=== PATIENT | male | born 1970 | race Caucasian/White ===

== ENCOUNTER 2018-01-14 06:00 | Day surgery (SDC) | payer OTHER ==
[~2018-01-14 06:00] MED LIST: CLONAZEPAM2 M1 PO; CYTOMEL25 MCG PO; DEPAKOTE ER500 MG PO; HUMULIN 70100 UNIT/2 SUBCUTANEO; INVOKAMET 50-51 EACH PO; INVOKANA300 MG PO; LIPITOR20 MG PO; RESTORIL30 M1 PO; SYNTHROID150 MCG PO; TRULICITY0.75 MG/0.
== END 2018-01-15 13:00 | disposition home or self-care (01) ==
LOC: CIR.AMB 06:00 → O/R 19:10 → CIR.AMB 19:10 → SURH 19:10 → O/R 19:11 → CIR.AMB 01-15 13:00 → SURH 01-15 18:26
DX: S52.392A Other fracture of shaft of radius, left arm, initial encounter for closed fracture (principal); S63.015A Dislocation of distal radioulnar joint of left wrist, initial encounter; M13.832 Other specified arthritis, left wrist
CPT/HCPCS: 25400; 25446; C1776

== ENCOUNTER 2018-11-18 07:00 | Day surgery (SDC) | payer OTHER ==
[~2018-11-18] VITALS: Ht 177.8 cm; Wt 122.5 kg
[~2018-11-18 07:00] MED LIST changes: +BYDUREON P2 MG/0.65 SUBCUTANEO; +GEODON80 MG PO; +INVOKAMET 150-1 EACH PO; +LOPID PO; +SYNTHROID175 MCG PO
[2018-11-19] MEDS ORDERED: GEMFIBROZIL600 MG PO (08:25)
== END 2018-11-18 13:00 | disposition home or self-care (01) ==
LOC: CIR.AMB 07:00 → SURH 07:00 → O/R 07:00 → SURH 07:15 → EDSTATUS 07:15 → CIR.AMB 07:15 → SURH 07:30 → SURG 07:30 → O/R 07:30 → CIR.AMB 13:00 → SURH 13:30 → SURG 17:11 → O/R 17:11 → SURG 11-19 19:04 → O/R 11-19 19:04
DX: M19.032 Primary osteoarthritis, left wrist (principal); S52.392 Other fracture of shaft of radius, left arm